=== PATIENT | male | born 1980 | race Caucasian/White ===

== ENCOUNTER 2017-05-03 10:07 | Emergency (ER) | payer OTHER ==
[~2017-05-03] VITALS: Ht 170.2 cm; Wt 70.0 kg
[~2017-05-03 10:07] MED LIST: AMIODARONE 150 MG INJ ONE; ATROPINE 1 MG/10 ML SYRINGE ONE; CA CHLORIDE 10% 10 ML SYRINGE ONE; EPINEPHrine 0.1 MG/ML SYG ONE; MAGNESIUM SULFATE 1 GM/100 ML D5W IVPB ONE; NA BICARBONATE 8.4% 50 ML SYG ONE
[2017-05-03 10:15] VITALS: Ht 170.2 cm; Wt 70.0 kg
[2017-05-03] MEDS ORDERED: LORA1TAB GTB (10:20)
[2017-05-03] MEDS ORDERED: METR500T14 IVPB (10:21)
[2017-05-03] MEDS ORDERED: FAMO20TA18 GTB (10:22)
[2017-05-03] MEDS ORDERED: LEVE100018 GTB (10:22)
[2017-05-03] MEDS ORDERED: MERO1VIA IV (10:23)
[2017-05-03] MEDS ORDERED: BISA10SU75 PR (10:24)
[2017-05-03] MEDS ORDERED: VANC1VIA2 IV (10:24)
[2017-05-03] MEDS ORDERED: MAGN400O4 GTB (10:25)
[2017-05-03] MEDS ORDERED: ZOS3375I IV (10:28)
[2017-05-03] MEDS ORDERED: EPINEPHrine 0.1 MG/ML SYG ONE (10:32)
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
== END 2017-05-03 21:00 | disposition expired ==
LOC: E/R 10:07 → FTE 21:00
DX: I46.9 Cardiac arrest, cause unspecified (principal)
CPT/HCPCS: 92950; 94002; J0171; J0282; J0461; J3475; Z7502; Z7610